=== PATIENT | female | born 1950 | race Caucasian/White ===

== ENCOUNTER → 2016-07-23 14:00 | Outpatient (CLI) | payer MEDICARE ==
[2013-08-28 06:44] VITALS: BMI 24.6
[~2016-07-23 14:00] MED LIST: BAYER CHEWABLE81 MG PO; DESERYL100 MG PO; GLUCOPHAGE1000 MG PO; MOBIC7.5 MG PO; PRINIVIL20 MG PO; TENORMIN50 MG PO
== END | disposition home or self-care (01) ==
LOC: D.CT 14:00
DX: I65.23 Occlusion and stenosis of bilateral carotid arteries (principal); R55 Syncope and collapse

== ENCOUNTER 2016-08-20 13:25 | Emergency (ER) | payer MEDICARE ==
[2013-08-28 06:44] VITALS: BMI 24.6
[2016-08-20 14:46] LABS: BASOPHILS 0.3 % (0-2); EOSINOPHILS 1.3 % (0-7); HEMATOCRIT 36.2 % (36.0-48.0); HEMOGLOBIN 11.6 g/dL (12-16); IMMATURE GRANULOCYTES 0.2 % (0-5); LYMPHOCYTES 19.7 % (15-50); MCH 27.7 pg (26.0-34.0); MCV 86.4 fL (80.0-100.0); MEAN PLATELET VOLUME 11.4 fL (7.4-10.4); MONOCYTES 6.5 % (2-11); PLATELET COUNT 159 10x3/uL (130-400); RBC 4.19 10x6/uL (4.00-5.40); RDW 14.9 % (11.5-14.5)
[2016-08-20 15:02] LABS: ALBUMIN 4.2 g/dL (3.4-5.0); ANION GAP 20.4 mmol/L (8-16); BILIRUBIN - TOTAL 0.47 mg/dL (0.2-1.3); CARBON DIOXIDE 20.2 mmol/L (21.0-32.0); CREATININE - SERUM 1.5 mg/dL (0.6-1.3); POTASSIUM - SERUM 3.6 mmol/L (3.5-5.1); PROTEIN - SERUM 6.7 g/dL (6.4-8.2)
[2016-08-20 15:05] LABS: APTT 24.5 SECONDS (22.8-39.4); INR 1.03 (0.85-1.17); PROTIME 13.3 SECONDS (11.6-15.0)
[2016-08-20 15:49] LABS: UDS - AMPHET NEGATIVE QUAL (NEGATIVE); UDS - BARB NEGATIVE QUAL (NEGATIVE); UDS - BENZO NEGATIVE QUAL (NEGATIVE); UDS - COCAINE NEGATIVE QUAL (NEGATIVE); UDS - METH NEGATIVE QUAL (NEGATIVE); UDS - OPIATE POSITIVE QUAL (NEGATIVE); UDS - PCP NEGATIVE QUAL (NEGATIVE); UDS - THC NEGATIVE QUAL (NEGATIVE)
[2016-08-20 15:51] LABS: APPEARANCE HAZY (CLEAR); BILIRUBIN NEGATIVE (NEGATIVE); COLOR YELLOW (YELLOW); GLUCOSE 1000 mg/dL (NEGATIVE); KETONE NEGATIVE (NEGATIVE); LEUKOCYTE ESTERASE TRACE (NEGATIVE); NITRITE NEGATIVE (NEGATIVE); PROTEIN NEGATIVE (NEGATIVE); UROBILINOGEN NORMAL (NORMAL)
[2016-08-20 15:52] LABS: BACTERIA FEW /hpf (NONE SEEN); EPITHELIAL CELLS 0-5 /hpf (0-5); HYALINE CAST 0-5 /lpf (NONE SEEN); MUCUS >1+ /lpf (NONE SEEN); RED CELLS - URINE 0-5 /hpf (0-5); WHITE CELLS - URINE 0-5 /hpf (0-5)
== END 2016-08-20 16:32 | disposition home or self-care (01) ==
LOC: D.ER 13:25
PROVIDERS: Emergency Medicine
DX: R55 Syncope and collapse (principal); E86.0 Dehydration; I95.1 Orthostatic hypotension; E11.9 Type 2 diabetes mellitus without complications; I25.10 Atherosclerotic heart disease of native coronary artery without angina pectoris

== ENCOUNTER → 2016-12-14 09:11 | Outpatient (CLI) | payer MEDICARE ==
[2013-08-28 06:44] VITALS: BMI 24.6
== END | disposition home or self-care (01) ==
LOC: D.MRI 09:11
DX: M47.812 Spondylosis without myelopathy or radiculopathy, cervical region (principal); S06.0X0A Concussion without loss of consciousness, initial encounter; S09.93XA Unspecified injury of face, initial encounter; S19.9XXA Unspecified injury of neck, initial encounter

== ENCOUNTER 2017-11-11 13:33 | Observation (INO) | payer MEDICARE ==
[~2017-11-11] VITALS: Ht 162.6 cm; Wt 63.5 kg
[2017-11-11 16:54] LABS: BASOPHILS 0.3 % (0-2); EOSINOPHILS 0.8 % (0-7); HEMATOCRIT 37.6 % (36.0-48.0); IMMATURE GRANULOCYTES 0.2 % (0-5); LYMPHOCYTES 14.5 % (15-50); MCH 31.3 pg (26.0-34.0); MCHC 34.6 g/dL (31.0-37.0); MCV 90.4 fL (80.0-100.0); MEAN PLATELET VOLUME 10.5 fL (7.4-10.4); MONOCYTES 6.5 % (2-11); NEUTROPHILS 77.7 % (40-80); PLATELET COUNT 158 10x3/uL (130-400); RBC 4.16 10x6/uL (4.00-5.40); RDW 12.7 % (11.5-14.5); WBC 6.3 10x3/uL (4.8-10.8)
[2017-11-11 17:08] LABS: ALBUMIN 4.1 g/dL (3.4-5.0); ALKALINE PHOSPHATASE 64 U/L (46-116); ALT (SGPT) 16 U/L (10-68); BILIRUBIN - TOTAL 0.33 mg/dL (0.2-1.3); CALC OSMOLALITY 285 mosm/kg (275-300); CALCIUM 9.2 mg/dL (8.5-10.1); CARBON DIOXIDE 26.1 mmol/L (21.0-32.0); CHLORIDE - SERUM 103 mmol/L (98-107); GLUCOSE 253 mg/dL (74-106); POTASSIUM - SERUM 3.5 mmol/L (3.5-5.1); PROTEIN - SERUM 7.3 g/dL (6.4-8.2); SODIUM 138 mmol/L (136-145); UREA NITROGEN 15 mg/dL (7-18); eGFR NON AFRICAN AMERICAN 59 mL/min (90-120)
[2017-11-11 17:10] LABS: TROPONIN-I < 0.017 ng/mL (0.000-0.060)
[2017-11-11 19:30] VITALS: BP 247/114
[2017-11-11 20:01] VITALS: BP 210/95
[2017-11-11 21:00] VITALS: BP 211/90
[2017-11-11 22:00] VITALS: BP 232/96
[2017-11-11 22:30] VITALS: BP 215/92
[2017-11-11 23:30] VITALS: BP 208/62
[2017-11-12 00:26] VITALS: BP 193/80
[2017-11-12 02:20] VITALS: BMI 24.0
[2017-11-12] MEDS ORDERED: ZOFRAN8 MG PO (02:50)
[2017-11-12] MEDS ORDERED: NAPROSYN500 MG PO (02:51)
[2017-11-12] MEDS ORDERED: ISORDIL40 MG PO (02:51)
[2017-11-12] MEDS ORDERED: NORMODYNE / TR200 MG PO (02:51)
[2017-11-12 04:43] LABS: BASOPHILS 0.2 % (0-2); EOSINOPHILS 0.4 % (0-7); HEMATOCRIT 36.7 % (36.0-48.0); HEMOGLOBIN 12.9 g/dL (12-16); IMMATURE GRANULOCYTES 0.3 % (0-5); LYMPHOCYTES 12.1 % (15-50); MCH 31.4 pg (26.0-34.0); MCHC 35.1 g/dL (31.0-37.0); MCV 89.3 fL (80.0-100.0); MEAN PLATELET VOLUME 10.4 fL (7.4-10.4); MONOCYTES 6.3 % (2-11); NEUTROPHILS 80.7 % (40-80); PLATELET COUNT 174 10x3/uL (130-400); RBC 4.11 10x6/uL (4.00-5.40); RDW 12.8 % (11.5-14.5)
[2017-11-12 04:45] LABS: WBC 9.1 10x3/uL (4.8-10.8)
[2017-11-12 05:11] LABS: CALC OSMOLALITY 272 mosm/kg (275-300); CALCIUM 8.3 mg/dL (8.5-10.1); CARBON DIOXIDE 24.3 mmol/L (21.0-32.0); CHLORIDE - SERUM 102 mmol/L (98-107); CKMB 0.8 U/L (0.0-3.6); CREATINE KINASE 26 UL (21-215); CREATININE - SERUM 0.8 mg/dL (0.6-1.3); GLUCOSE 163 mg/dL (74-106); POTASSIUM - SERUM 3.2 mmol/L (3.5-5.1); SODIUM 135 mmol/L (136-145); TROPONIN-I < 0.017 ng/mL (0.000-0.060); UREA NITROGEN 11 mg/dL (7-18); eGFR NON AFRICAN AMERICAN 76 mL/min (90-120)
[2017-11-12 05:44] VITALS: BP 174/81
[2017-11-12 08:21] VITALS: BP 178/97
[2017-11-12] MEDS ORDERED: NIFEDIPINE ER60 MG PO (12:10)
[2017-11-12 12:53] VITALS: BP 183/75
[2017-11-12 14:15] VITALS: Ht 162.6 cm; Wt 63.5 kg
[2017-11-12 16:23] VITALS: BP 203/80
[2017-11-12 20:16] VITALS: BP 177/68
[2017-11-13 01:25] VITALS: BP 120/72
[2017-11-13 04:34] LABS: BASOPHILS 0.1 % (0-2); EOSINOPHILS 0.1 % (0-7); HEMATOCRIT 36.2 % (36.0-48.0); HEMOGLOBIN 12.6 g/dL (12-16); IMMATURE GRANULOCYTES 0.3 % (0-5); LYMPHOCYTES 11.4 % (15-50); MCH 31.2 pg (26.0-34.0); MCHC 34.8 g/dL (31.0-37.0); MCV 89.6 fL (80.0-100.0); MEAN PLATELET VOLUME 10.2 fL (7.4-10.4); MONOCYTES 7.8 % (2-11); NEUTROPHILS 80.3 % (40-80); PLATELET COUNT 187 10x3/uL (130-400); RBC 4.04 10x6/uL (4.00-5.40); RDW 12.8 % (11.5-14.5); WBC 8.9 10x3/uL (4.8-10.8)
[2017-11-13 04:39] LABS: ANION GAP 13.7 mmol/L (8-16); CALCIUM 9.1 mg/dL (8.5-10.1)
[2017-11-13 04:46] LABS: POTASSIUM - SERUM 3.7 mmol/L (3.5-5.1)
[2017-11-13 05:03] VITALS: BP 155/70
[2017-11-13 08:41] VITALS: BP 124/61
[2017-11-13 12:39] VITALS: BP 146/65
[2017-11-13 15:52] VITALS: BP 118/64
== END 2017-11-13 17:10 | disposition home or self-care (01) ==
LOC: D.ER 13:33 → OBSVTIME 23:43 → D.EDHOLD 23:43 → D.M2 23:43
PROVIDERS: Family Medicine; Internal Medicine Nephrology
DX: I16.0 Hypertensive urgency (principal); E78.5 Hyperlipidemia, unspecified; I25.10 Atherosclerotic heart disease of native coronary artery without angina pectoris; Z95.5 Presence of coronary angioplasty implant and graft; E11.9 Type 2 diabetes mellitus without complications; Z86.73 Personal history of transient ischemic attack (TIA), and cerebral infarction without residual deficits; E87.6 Hypokalemia; K25.9 Gastric ulcer, unspecified as acute or chronic, without hemorrhage or perforation

== ENCOUNTER → 2017-11-25 11:09 | Outpatient (CLI) | payer MEDICARE ==
[2017-11-12 14:15] VITALS: BMI 24.0
[~2017-11-25 11:09] MED LIST changes: +ISORDIL40 MG PO; +NAPROSYN500 MG PO; +NIFEDIPINE ER60 MG PO; +NORMODYNE / TR200 MG PO; +ZOFRAN8 MG PO
== END | disposition home or self-care (01) ==
LOC: D.RAD 11:09
DX: M25.552 Pain in left hip (principal)

== ENCOUNTER 2017-11-28 15:38 | Emergency (ER) | payer MEDICARE ==
[~2017-11-28] VITALS: Ht 162.6 cm; Wt 61.4 kg
[2017-11-28 15:43] VITALS: BP 154/98; Ht 162.6 cm; Wt 61.4 kg
== END 2017-11-28 17:00 | disposition left against medical advice (07) ==
LOC: D.ER 15:38
DX: H92.02 Otalgia, left ear (principal)

== ENCOUNTER → 2017-12-02 15:29 | Outpatient (CLI) | payer MEDICARE ==
[2017-11-28 15:43] VITALS: BMI 23.2
== END | disposition home or self-care (01) ==
LOC: D.MRI 12-01 18:00
DX: I67.9 Cerebrovascular disease, unspecified (principal)

== ENCOUNTER 2018-06-26 12:46 | Inpatient (IN) | payer OTHER ==
[2018-06-26] VITALS (11 sets, daily range): BP systolic 93–144; BP diastolic 41–72; BMI 23.1
[2018-06-26 13:42] LABS: HEMATOCRIT 23.9 % (36.0-48.0); HEMOGLOBIN 7.6 g/dL (12-16); MCH 29.6 pg (26.0-34.0); MCHC 31.8 g/dL (31.0-37.0); MEAN PLATELET VOLUME 10.9 fL (7.4-10.4); PLATELET COUNT 242 10x3/uL (130-400); RBC 2.57 10x6/uL (4.00-5.40); RDW 13.9 % (11.5-14.5); WBC 21.9 10x3/uL (4.8-10.8)
[2018-06-26 13:44] LABS: APPEARANCE CLEAR (CLEAR); BILIRUBIN NEGATIVE (NEGATIVE); COLOR STRAW (YELLOW); GLUCOSE 1000 mg/dL (NEGATIVE); KETONE LARGE mg/dL (NEGATIVE); NITRITE NEGATIVE (NEGATIVE); PROTEIN NEGATIVE (NEGATIVE); UROBILINOGEN NORMAL (NORMAL)
[2018-06-26 13:57] LABS: ALBUMIN 3.1 g/dL (3.4-5.0); ANION GAP 22.1 mmol/L (8-16); BILIRUBIN - TOTAL 0.34 mg/dL (0.2-1.3); CALCIUM 8.4 mg/dL (8.5-10.1); CARBON DIOXIDE 18.7 mmol/L (21.0-32.0); CREATININE - SERUM 1.5 mg/dL (0.6-1.3); POTASSIUM - SERUM 4.8 mmol/L (3.5-5.1); PROTEIN - SERUM 5.7 g/dL (6.4-8.2)
[2018-06-26 15:15] LABS: LYMPHOCYTES 4 % (15-50); MONOCYTES 4 % (2-11); NEUTROPHILS 92 % (40-80); PLATELET ESTIMATE NORMAL
[2018-06-26 17:00] LABS: HEMATOCRIT 22.9 % (36.0-48.0)
[2018-06-26 17:05] LABS: INR 1.41 (0.85-1.17); PROTIME 16.7 SECONDS (11.6-15.0)
[2018-06-26 17:10] LABS: HEMOGLOBIN 7.3 g/dL (12-16)
[2018-06-26 17:14] LABS: D-DIMER-QUANTITATIVE 4.17 ug/mLFEU (0.20-0.54)
[2018-06-26 18:27] LABS: ANION GAP 22.3 mmol/L (8-16); CALCIUM 8.1 mg/dL (8.5-10.1); CARBON DIOXIDE 15.6 mmol/L (21.0-32.0); CREATININE - SERUM 1.5 mg/dL (0.6-1.3); MAGNESIUM - SERUM 1.8 mg/dL (1.8-2.4)
[2018-06-26 18:36] LABS: POTASSIUM - SERUM 3.9 mmol/L (3.5-5.1)
[2018-06-26 23:24] LABS: HEMATOCRIT 19.3 % (36.0-48.0); HEMOGLOBIN 6.4 g/dL (12-16)
[2018-06-26 23:34] LABS: CALCIUM 8.3 mg/dL (8.5-10.1); CREATININE - SERUM 1.4 mg/dL (0.6-1.3); POTASSIUM - SERUM 3.4 mmol/L (3.5-5.1)
[2018-06-26 23:35] LABS: ANION GAP 15.6 mmol/L (8-16); CARBON DIOXIDE 20.8 mmol/L (21.0-32.0)
[2018-06-27] VITALS (29 sets, daily range): BP systolic 104–199; BP diastolic 45–100; BMI 22.6
[2018-06-27 04:06] LABS: BASOPHILS 0.1 % (0-2); EOSINOPHILS 0 % (0-7); IMMATURE GRANULOCYTES 0.3 % (0-5); MCH 30.2 pg (26.0-34.0); MCHC 33.3 g/dL (31.0-37.0); MEAN PLATELET VOLUME 10.3 fL (7.4-10.4); MONOCYTES 4.9 % (2-11); NEUTROPHILS 87.7 % (40-80); RDW 14.6 % (11.5-14.5)
[2018-06-27 04:09] LABS: WBC 11.3 10x3/uL (4.8-10.8)
[2018-06-27 04:10] LABS: RBC 1.99 10x6/uL (4.00-5.40)
[2018-06-27 04:11] LABS: MCV 90.5 fL (80.0-100.0); PLATELET COUNT 150 10x3/uL (130-400)
[2018-06-27 04:15] LABS: INR 1.42 (0.85-1.17); PROTIME 16.8 SECONDS (11.6-15.0)
[2018-06-27 04:16] LABS: ANION GAP 15.2 mmol/L (8-16); CALCIUM 8.5 mg/dL (8.5-10.1); CREATININE - SERUM 1.2 mg/dL (0.6-1.3); MAGNESIUM - SERUM 1.9 mg/dL (1.8-2.4); POTASSIUM - SERUM 3.2 mmol/L (3.5-5.1)
[2018-06-27 06:50] LABS: ALBUMIN 2.8 g/dL (3.4-5.0); BILIRUBIN - TOTAL 0.18 mg/dL (0.2-1.3); PROTEIN - SERUM 5.1 g/dL (6.4-8.2)
[2018-06-27 08:36] LABS: % SATURATION 7 % (15-55); IRON 14 ug/dl (35-150); TOTAL IRON BIND CAPACITY 194 ug/dl (260-445); UNSAT IRON BIND CAPACITY 180 ug/dl (150-375)
[2018-06-27 11:11] LABS: HEMATOCRIT 21.2 % (36.0-48.0)
[2018-06-27 11:17] LABS: HEMOGLOBIN 7.1 g/dL (12-16)
[2018-06-27 11:20] LABS: ANION GAP 15.7 mmol/L (8-16); CALCIUM 7.6 mg/dL (8.5-10.1); CARBON DIOXIDE 18.6 mmol/L (21.0-32.0); MAGNESIUM - SERUM 1.8 mg/dL (1.8-2.4); POTASSIUM - SERUM 3.3 mmol/L (3.5-5.1)
[2018-06-28] VITALS (20 sets, daily range): BP systolic 104–212; BP diastolic 63–100
[2018-06-28 05:00] LABS: AMYLASE - SERUM 237 U/L (25-115); CALCIUM 7.3 mg/dL (8.5-10.1); CARBON DIOXIDE 22.5 mmol/L (21.0-32.0); CHLORIDE - SERUM 115 mmol/L (98-107); CREATININE - SERUM 0.8 mg/dL (0.6-1.3); GLUCOSE 155 mg/dL (74-106); LIPASE 98 U/L (73-393); MAGNESIUM - SERUM 1.7 mg/dL (1.8-2.4); PHOSPHOROUS 1.7 mg/dL (2.5-4.9); SODIUM 146 mmol/L (136-145); eGFR NON AFRICAN AMERICAN 76 mL/min (90-120)
[2018-06-28 05:13] LABS: CALC OSMOLALITY 298 mosm/kg (275-300); POTASSIUM - SERUM 2.6 mmol/L (3.5-5.1); UREA NITROGEN 26 mg/dL (7-18)
[2018-06-28 07:54] LABS: BASOPHILS 0 % (0-2); EOSINOPHILS 0 % (0-7); IMMATURE GRANULOCYTES 0.3 % (0-5); LYMPHOCYTES 9.1 % (15-50); MCH 29.3 pg (26.0-34.0); MCHC 34.2 g/dL (31.0-37.0); MEAN PLATELET VOLUME 10.8 fL (7.4-10.4); MONOCYTES 8.5 % (2-11); NEUTROPHILS 82.1 % (40-80); RDW 15.2 % (11.5-14.5)
[2018-06-28 08:02] LABS: HEMATOCRIT 26.9 % (36.0-48.0); HEMOGLOBIN 9.2 g/dL (12-16); RBC 3.14 10x6/uL (4.00-5.40); WBC 7.4 10x3/uL (4.8-10.8)
[2018-06-28 08:03] LABS: MCV 85.7 fL (80.0-100.0); PLATELET COUNT 86 10x3/uL (130-400)
[2018-06-28 08:29] LABS: PLATELET ESTIMATE DECREASED
[2018-06-28 15:27] LABS: HEMATOCRIT 27.5 % (36.0-48.0); HEMOGLOBIN 9.4 g/dL (12-16)
--- NOTE | 2018-06-29 00:11 | MORECARE ---
CASE MANAGEMENT DISCHARGE SUMMARY PATIENT: KRISHNA CLIFTON UNIT: [id number] ADM DATE: 06/26/18 AGE: 67 : 50 SEX: F ROOM/BED: D.213 AUTHOR: KARINE RODRIGUEZ PHYSICIAN: REFERRING PHYSICIAN: ISABELA ELLIS MD DATE OF SERVICE: 06/29/18 Discharge Plan Patient Name: KRISHNA CLIFTON [facility] [facility] 1950 Planned Disposition: Home Anticipated Discharge Date: Discharge Date: Expected LOS: Initial Reviewer: [email or web address] Initial Review Date: 06/28/2018 Generated: 06/29/18 1:10 am DCPIA - Discharge Planning Initial Assessment Updated by [email or web address]: Latoya Del Cid on 06/29/18 12:09 am * Is the patient Alert and Oriented? Yes * How many steps to enter\exit or inside your home? * PCP EMILY * Pharmacy [facility] * Preadmission Environment Home with Family * ADLs Independent * Other Equipment WALKER, CANE * List name and contact numbers for known caregivers / representatives who currently or will assist patient after discharge: EDIN CLIFTON - SPOUSE- [phone] * Verbal permission to speak to the caregivers and representatives has been obtained from the patient. N/A * Community resources currently utilized None * Additional services required to return to the preadmission environment? No * Can the patient safely return to the preadmission environment? Yes * Has this patient been hospitalized within the prior 30 days at any hospital? No Patient Name: KRISHNA CLIFTON Page [phone] at 0011 All edits/amendments must be made on the electronic document DICTATION DATE: 06/29/189 LAPIDARIST: GERA 06/29/189 RPT#: [id number] DC DATE: STATUS: ADM IN [facility] [address] [place] [address] END OF REPORT
--- NOTE | 2018-06-29 00:18 | MORECARE ---
CASE MANAGEMENT DISCHARGE SUMMARY PATIENT: KRISHNA CLIFTON UNIT: [id number] ADM DATE: 06/26/18 AGE: 67 : 50 SEX: F ROOM/BED: D.2149 AUTHOR: MICHAEL,DOC PHYSICIAN: REFERRING PHYSICIAN: ISABELA ELLIS MD DATE OF SERVICE: 06/29/18 Discharge Plan Patient Name: KRISHNA CLIFTON Facility: [facility]:[place] : 1950 Planned Disposition: Home Anticipated Discharge Date: Discharge Date: Expected LOS: Initial Reviewer: [email or web address] Initial Review Date: 06/28/2018 Generated: 06/29/18 1:17 am Comments DCP- Discharge Planning Updated by [email or web address]: Latoya Del Cid on 06/28/18 11:[address] Patient Name: KRISHNA CLIFTON Admission Status: ER Accout number: [id number] Admission Date: 06-26-2018 : 1950 Admission Diagnosis: Attending: ISABELA ELLIS Current LOS: 3 Anticipated DC Date: Planned Disposition: Home Primary Insurance: [facility] [employer] PPO Discharge Planning Comments: CM met with patient at bedside after explaining CM role and obtaining verbal consent. Patient lives at home with her and grand-daughter and plans to return there upon discharge. Patient feels this would be a safe discharge. CM discussed availability / needs of home health and medical equipment. Patient denies any discharge needs at this time. Patient states she will have family drive her home upon discharge. CM will continue to follow and assist as needed with discharge planning / needs. Traveling Crane Operator: Latoya Del Cid DCPIA - Discharge Planning Initial Assessment Updated by [email or web address]: Latoya Del Cid on 06/29/18 12:09 am * Is the patient Alert and Oriented? Yes * How many steps to enter\exit or inside your home? * PCP EMILY * Pharmacy [facility] * Preadmission Environment Home with Family * ADLs Independent * Other Equipment WALKER, CANE * List name and contact numbers for known caregivers / representatives who currently or will assist patient after discharge: EDIN CLIFTON - SPOUSE- [phone] * Verbal permission to speak to the caregivers and representatives has been obtained from the patient. N/A * Community resources currently utilized None * Additional services required to return to the preadmission environment? No * Can the patient safely return to the preadmission environment? Yes * Has this patient been hospitalized within the prior 30 days at any hospital? No Last DP export: 06/28/18 11:10 p Patient Name: KRISHNA CLIFTON Page [phone] at 0018 All edits/amendments must be made on the electronic document DICTATION DATE: 06/29/1816 DAY HABILITATION SPECIALIST: DM 06/29/1816 RPT#: [id number] DC DATE: STATUS: ADM IN [facility] [address] [place] [address] END OF REPORT
[2018-06-29 01:37] VITALS: BP 165/69
[2018-06-29 04:00] VITALS: BP 182/89
[2018-06-29 04:29] LABS: BASOPHILS 0.2 % (0-2); EOSINOPHILS 0.4 % (0-7); HEMATOCRIT 26.4 % (36.0-48.0); HEMOGLOBIN 9.1 g/dL (12-16); IMMATURE GRANULOCYTES 0.4 % (0-5); LYMPHOCYTES 13.3 % (15-50); MCH 29.6 pg (26.0-34.0); MCHC 34.5 g/dL (31.0-37.0); MONOCYTES 7.5 % (2-11); NEUTROPHILS 78.2 % (40-80); PLATELET COUNT 74 10x3/uL (130-400); RBC 3.07 10x6/uL (4.00-5.40)
[2018-06-29 04:56] LABS: WBC 5.2 10x3/uL (4.8-10.8)
[2018-06-29 05:04] LABS: CALCIUM 7.7 mg/dL (8.5-10.1); CARBON DIOXIDE 21.5 mmol/L (21.0-32.0); CHLORIDE - SERUM 110 mmol/L (98-107); CREATININE - SERUM 0.6 mg/dL (0.6-1.3); MAGNESIUM - SERUM 1.6 mg/dL (1.8-2.4); SODIUM 141 mmol/L (136-145); eGFR NON AFRICAN AMERICAN > 90 mL/min (90-120)
[2018-06-29 05:05] LABS: CALC OSMOLALITY 281 mosm/kg (275-300); GLUCOSE 92 mg/dL (74-106); POTASSIUM - SERUM 3.4 mmol/L (3.5-5.1); UREA NITROGEN 15 mg/dL (7-18)
[2018-06-29 05:42] LABS: PLATELET ESTIMATE DECREASED
[2018-06-29 11:47] LABS: HEMATOCRIT 27.3 % (36.0-48.0); HEMOGLOBIN 9.6 g/dL (12-16)
[2018-06-29 15:54] LABS: HEMATOCRIT 26.9 % (36.0-48.0); HEMOGLOBIN 9.5 g/dL (12-16)
[2018-06-29 21:07] VITALS: BP 152/71
[2018-06-30] VITALS: BP 189/84
[2018-06-30 05:02] VITALS: BP 160/70
[2018-06-30 06:31] LABS: BASOPHILS 0.3 % (0-2); EOSINOPHILS 1.8 % (0-7); HEMATOCRIT 27.8 % (36.0-48.0); HEMOGLOBIN 9.6 g/dL (12-16); IMMATURE GRANULOCYTES 0.8 % (0-5); LYMPHOCYTES 12.8 % (15-50); MCH 29.7 pg (26.0-34.0); MCHC 34.5 g/dL (31.0-37.0); MCV 86.1 fL (80.0-100.0); MONOCYTES 14.6 % (2-11); NEUTROPHILS 69.7 % (40-80); RBC 3.23 10x6/uL (4.00-5.40); RDW 14.7 % (11.5-14.5)
[2018-06-30 06:34] LABS: PLATELET COUNT 105 10x3/uL (130-400)
[2018-06-30 06:43] LABS: CALC OSMOLALITY 281 mosm/kg (275-300); CALCIUM 7.7 mg/dL (8.5-10.1); CHLORIDE - SERUM 107 mmol/L (98-107); CREATININE - SERUM 0.7 mg/dL (0.6-1.3); GLUCOSE 135 mg/dL (74-106); POTASSIUM - SERUM 3.3 mmol/L (3.5-5.1); SODIUM 141 mmol/L (136-145); UREA NITROGEN 10 mg/dL (7-18); eGFR NON AFRICAN AMERICAN 88 mL/min (90-120)
[2018-06-30 09:39] VITALS: BP 139/69
[2018-06-30 11:45] VITALS: BP 140/72
[2018-06-30] MEDS ORDERED: PROTONIX40 MG PO (15:39)
[2018-06-30] MEDS ORDERED: CARAFATE1 G PO (15:40)
[2018-06-30] MEDS ORDERED: LEVOFLOXACIN500 MG PO (15:41)
[2018-06-30] MEDS ORDERED: FLAGYL500 MG PO (15:45)
[2018-06-30] MEDS ORDERED: PLAVIX75 MG PO (15:53)
--- NOTE | 2018-07-01 09:19 | MORECARE ---
CASE MANAGEMENT DISCHARGE SUMMARY PATIENT: KRISHNA CLIFTON UNIT: [id number] ADM DATE: 06/26/18 AGE: 67 : 50 SEX: F ROOM/BED: D.5576 AUTHOR: MICHAELDOC PHYSICIAN: REFERRING PHYSICIAN: ISABELA ELLIS MD DATE OF SERVICE: 07/01/18 Discharge Plan Patient Name: KRISHNA CLIFTON Facility: [facility]:[place] : 1950 Planned Disposition: Home Anticipated Discharge Date: 06/30/18 Discharge Date: 06/30/2018 Expected LOS: 4 Initial Reviewer: [email or web address] Initial Review Date: 06/28/2018 Generated: 07/01/18 10:19 am DCP- Discharge Planning Updated by [email or web address]: Latoya Del Cid on 06/28/18 11:[address] Patient Name: KRISHNA CLIFTON Admission Status: ER Accout number: [id number] Admission Date: 06-26-2018 : 1950 Admission Diagnosis: Attending: ISABELA ELLIS Current LOS: 3 Anticipated DC Date: Planned Disposition: Home Primary Insurance: [employer] PPO Discharge Planning Comments: CM met with patient at bedside after explaining CM role and obtaining verbal consent. Patient lives at home with her and grand-daughter and plans to return there upon discharge. Patient feels this would be a safe discharge. CM discussed availability / needs of home health and medical equipment. Patient denies any discharge needs at this time. Patient states she will have family drive her home upon discharge. CM will continue to follow and assist as needed with discharge planning / needs. Aquaculture Farmer: Latoya Del Cid DCPIA - Discharge Planning Initial Assessment Updated by [email or web address]: Latoya Del Cid on 06/29/18 12:09 am * Is the patient Alert and Oriented? Yes * How many steps to enter\exit or inside your home? * PCP EMILY * Pharmacy [facility] * Preadmission Environment Home with Family * ADLs Independent * Other Equipment WALKER, CANE * List name and contact numbers for known caregivers / representatives who currently or will assist patient after discharge: EDIN CLIFTON - SPOUSE- [phone] * Verbal permission to speak to the caregivers and representatives has been obtained from the patient. N/A * Community resources currently utilized None * Additional services required to return to the preadmission environment? No * Can the patient safely return to the preadmission environment? Yes * Has this patient been hospitalized within the prior 30 days at any hospital? No Last DP export: 06/28/18 11:17 p Patient Name: KRISHNA CLIFTON Page 26048 at 0919 All edits/amendments must be made on the electronic document DICTATION DATE: 07/01/18917 RAMP AND CARGO SUPERVISOR: GERA 07/01/18917 RPT#: [id number] DC DATE:06/30/18 STATUS: DIS IN [facility] [address] [place] [address] END OF REPORT
== END 2018-06-30 17:55 | disposition home or self-care (01) | DRG 377 ==
LOC: D.ER 12:46 → D.ICU 17:05 → D.M2 06-28 22:28
PROVIDERS: Family Medicine; Internal Medicine Gastroenterology; Internal Medicine Hematology & Oncology; ADMIT Internal Medicine Nephrology
PROC: 02HV33Z Insertion of Infusion Device into Superior Vena Cava, Percutaneous Approach (ICD-10-PCS; 2018-06-27)
PROC: B548ZZA Ultrasonography of Superior Vena Cava, Guidance (ICD-10-PCS; 2018-06-27)
PROC: 0DB68ZX Excision of Stomach, Via Natural or Artificial Opening Endoscopic, Diagnostic (ICD-10-PCS; principal; 2018-06-28 13:47)
DX: K25.4 Chronic or unspecified gastric ulcer with hemorrhage (principal); E11.10 Type 2 diabetes mellitus with ketoacidosis without coma; G93.41 Metabolic encephalopathy; D62 Acute posthemorrhagic anemia; N17.9 Acute kidney failure, unspecified; E87.2 Acidosis; D68.9 Coagulation defect, unspecified; E87.0 Hyperosmolality and hypernatremia; K57.92 Diverticulitis of intestine, part unspecified, without perforation or abscess without bleeding; R11.10 Vomiting, unspecified; W19.XXXA Unspecified fall, initial encounter; I25.10 Atherosclerotic heart disease of native coronary artery without angina pectoris; E86.0 Dehydration; Z91.81 History of falling; Z95.5 Presence of coronary angioplasty implant and graft; Z86.73 Personal history of transient ischemic attack (TIA), and cerebral infarction without residual deficits; K44.9 Diaphragmatic hernia without obstruction or gangrene; E87.6 Hypokalemia

== ENCOUNTER 2018-10-24 11:33 | Day surgery (SDC) | payer MEDICARE ==
[~2018-10-24] VITALS: Ht 162.6 cm; Wt 54.5 kg
[~2018-10-24 11:33] MED LIST changes: +CARAFATE1 G PO; +FLAGYL500 MG PO; +LEVOFLOXACIN500 MG PO; +PLAVIX75 MG PO; +PROTONIX40 MG PO
[2018-10-24 12:05] LABS: BASOPHILS 0.2 % (0-2); EOSINOPHILS 2.5 % (0-7); HEMATOCRIT 37.5 % (36.0-48.0); LYMPHOCYTES 24.1 % (15-50); MCH 30.1 pg (26.0-34.0); MCHC 34.7 g/dL (31.0-37.0); MCV 86.8 fL (80.0-100.0); MEAN PLATELET VOLUME 10.1 fL (7.4-10.4); MONOCYTES 7.9 % (2-11); NEUTROPHILS 65.3 % (40-80); RBC 4.32 10x6/uL (4.00-5.40); RDW 13.7 % (11.5-14.5); WBC 4.8 10x3/uL (4.8-10.8)
[2018-10-24 12:12] LABS: PLATELET COUNT 165 10x3/uL (130-400)
[2018-10-24 12:17] LABS: CALC OSMOLALITY 279 mosm/kg (275-300); CALCIUM 9.6 mg/dL (8.5-10.1); CARBON DIOXIDE 22.4 mmol/L (21.0-32.0); CHLORIDE - SERUM 107 mmol/L (98-107); CREATININE - SERUM 0.7 mg/dL (0.6-1.3); GLUCOSE 100 mg/dL (74-106); POTASSIUM - SERUM 3.6 mmol/L (3.5-5.1); SODIUM 141 mmol/L (136-145); UREA NITROGEN 11 mg/dL (7-18); eGFR NON AFRICAN AMERICAN 88 mL/min (90-120)
[2018-10-24 13:11] VITALS: Ht 162.6 cm; Wt 54.5 kg
--- NOTE | 2018-10-24 14:51 | NUR ---
DC INSTRUCTIONS GIVEN TO PT/FAMILY. STATE UNDERSTANDING. DC'D IV CATH FULLY INTACT.
--- NOTE | 2018-10-24 15:07 | NUR ---
PT LEFT UNIT VIA WC AT 1511
--- NOTE | 2018-10-24 20:17 | OP ---
PATIENT NAME: KRISHNA CLIFTON MEDICAL RECORD: [id number] :[birth year] LOCATION:[facility] ADMISSION DATE: SURGEON: ADEN WEINSTEIN DO DATE OF OPERATION: 10/24/2018 PROCEDURE: EGD with biopsies. INDICATIONS FOR PROCEDURE: History of gastric ulcers. This is a 4-month followup to reevaluate. SCOPE: Olympus video gastroscope. MEDICATIONS: Propofol 100 mg IV per anesthesia. ESTIMATED BLOOD LOSS: Minimal. COMPLICATIONS: None. FINDINGS: Informed consent was given. The patient was made comfortable with the above medication. After reaching an adequate level of sedation by slow IV push, the patient was placed on her left side. The endoscope was advanced under direct visualization through the mouth to the second portion of the duodenum with ease. The entire esophagus appeared normal. At the GE junction, there were mild changes consistent with LA class A reflux-induced esophagitis. The endoscope was advanced beyond the GE junction into the stomach and retroflexed to view the cardia, where a small sliding hiatal hernia was present. Throughout the stomach, there were patchy areas of erythema and granularity consistent with gastritis. Random cold forceps biopsies were taken to submit for histopathology and to rule out the presence of H. pylori. In the antrum/prepyloric region, there were a few ulcerations with clean bases. Appearances were consistent with NSAIDs. A single cold forceps biopsy was taken from the edge of the largest ulcer site. Of note, the previous ulcer that was present has healed by imaging. The endoscope was advanced beyond the pylorus into the duodenum, which appeared normal down to the second portion. The endoscope was withdrawn from the patient. The patient tolerated the procedure well and there were no complications. IMPRESSION: 1. LA class A reflux-induced esophagitis. 2. Small sliding hiatal hernia. 3. A few prepyloric ulcers, which are likely related to the patient's high dose aspirin that she takes daily. 4. Gastritis. PLAN AND RECOMMENDATIONS: 1. Discharge home when recovery parameters are met. 2. Follow up biopsy specimen results. 3. GERD diet and reflux precautions. 4. Continue antacids indefinitely while taking high dose aspirin. 5. Minimize use of anti-inflammatories. 6. Repeat EGD as needed. TRANSINT:[id number] Voice Confirmation ID: [id number] DOCUMENT ID: [id number] OPERATIVE REPORT [id number] KRISHNA CLIFTON NATHAN A DO at 2017 CC: [id number] DICTATION DATE: 10/24/18 1401 TRAVELIFT OPERATOR: 10/24/18 1412 [facility] 10/24/18 [place] [id number] [place] [id number]
== END 2018-10-24 15:11 | disposition home or self-care (01) ==
LOC: D.OPS 11:33
PROVIDERS: Anesthesiology; ATTEND Internal Medicine Gastroenterology
DX: K21.0 Gastro-esophageal reflux disease with esophagitis (principal); K44.9 Diaphragmatic hernia without obstruction or gangrene; K29.50 Unspecified chronic gastritis without bleeding; Z01.812 Encounter for preprocedural laboratory examination

== ENCOUNTER → 2018-11-01 11:10 | Outpatient (CLI) | payer MEDICARE ==
[2018-10-24 13:11] VITALS: BMI 20.6
== END | disposition home or self-care (01) ==
LOC: D.NM 11:10
PROVIDERS: ATTEND Internal Medicine Gastroenterology
DX: R10.9 Unspecified abdominal pain (principal); R11.0 Nausea

== ENCOUNTER → 2019-07-28 09:30 | Outpatient (CLI) | payer MEDICARE ==
[2018-10-24 13:11] VITALS: BMI 20.6
== END | disposition home or self-care (01) ==
LOC: D.CT 07-26 15:00
PROVIDERS: ATTEND Internal Medicine Cardiovascular Disease
DX: I70.213 Atherosclerosis of native arteries of extremities with intermittent claudication, bilateral legs (principal)

== ENCOUNTER 2019-08-21 06:42 | Outpatient (CLI) | payer MEDICARE ==
[~2019-08-21] VITALS: Ht 162.6 cm; Wt 61.8 kg
--- NOTE | ~2019-08-21 | HEMODYNAMI ---
PATIENT:KRISHNA CLIFTON MEDICAL RECORD: [id number] : 50 LOCATION:[facility] ADMISSION DATE: 08/21/19 Generatedon:08/21/20199:12 Patient name: KRISHNA CLIFTON Patient #: [id number] SSN: [id number] : 1950 Date of study: 08/21/2019 Page: Of Hemodynamic Procedure Report Patient Data Patient Demographics Procedure consent was obtained First Name: KRISHNA Gender: Female Last Name: ETIENNE : 1950 Middle Initial: BECKIE Age: 68 year(s) Patient #: [id number] Race: SSN: [id number] Additional ID: [id number] Contact details Address: [address] [place] [address] State: [place] City: [place] Zip code: [address] Past Medical History Allergies Allergen Reaction Date Comments Reported Other allergy 08/21/2019 N Admission Admission Data Admission Date: 08/21/2019 Admission Time: 6:42 Arrival Date: 08/21/2019 Arrival Time: 0:00 Admit Source: Other Insurance Payor: Medicare [facility] #: [id number] Lab Results Lab Result Date: 08/21/2019 Lab Result Time: 0:00 Biochemistry Name Units Result Min Max BUN mg/dl 22 --(----)-* 7 18 Creatinine mg/dl 0.9 --(-*--)-- 0.6 1.3 eGFR ml/min 66 *-(----)-- 90 120 NONAFRICAN CBC Name Units Result Min Max Hemoglobin g/dl 11.4 *-(----)-- 13.5 17.5 Procedure Procedure Types Cath Procedure Diagnostic Procedure Sedation Charges Moderate Sedation up to 30 minutes Peripheral Cath Diagnostic Procedure Graves Registration Specialist Peripheral Procedures AFRO (Diagnostic) Peripheral vascular Intervention Stent Stent-Fem/Popw/plasty Procedure Description Procedure Date Procedure Date: 08/21/2019 Procedure Start Time: 8:33 Procedure End Time: 9:07 Procedure Staff Name Function Ramiro Alcaraz MD Performing Physician Matthew Jennings RN Nurse Lidia Rosario RT Scrub Kristie Mcrae RT Monitor Matthew Jennings RN Funeral Service Practitioner/Embalmer Procedure Data Cath Procedure Fluoroscopy Diagnostic fluoroscopy Total fluoroscopy Time: 7.5 time: 7.5 min min Diagnostic fluoroscopy Total fluoroscopy dose: 136 dose: 136 mGy mGy Entry Location Entry Primary Successful Side Size Upsize Upsize Entry Closure Succes sful Closure Location (Fr) 1 (Fr) 2 (Fr) Remarks Device Remarks Femoral Left 5 Fr 6 Fr 6 Fr Exoseal artery Long Short Estimated blood loss: 5 ml Diagnostic catheters Device Type Used For End Catheter Placement DIAGNOSTIC UF 5Fr Multi-vessel catheter ([id number]) Angiography Procedure Complications No complications Procedure Medications Medication Administration Route Dosage Oxygen etCO2 Nasal cannula 2 l/min Lidocaine 2% added to field 20 Heparin Flush Bag added to field 2 bags (1000units/500ml NS) 0.9% NaCl I.V. 100 ml/hr Versed I.V. 1 mg Fentanyl I.V. 50 mcg Versed I.V. 1 mg Fentanyl I.V. 50 mcg Heparin Bolus I.V. 4000 units Integrilin (Bolus I.V. 5.6 ml 2mg/ml) Fentanyl I.V. 50 mcg Fentanyl I.V. 50 mcg Plavix P.O. 600 mg Hemodynamics Rest HGB: 11.4 (g/dl) Heart Rate: 69 (bpm) Snapshots Pre Cath Intra NCS Post Cath Vital Signs Time Heart Resp SPO2 etCO2 NIBP (mmHg) Rhythm Pain Sedation Rate (ipm) (%) (mmHg) Status Level (bpm) 8:21:09 67 15 98 38.5 No Cuff NSR 0 (11) 10(A) , No pain 8:23:26 67 12 98 37.8 185/81(145) NSR 0 (11) 10(A) , No pain 8:26:49 69 15 99 40.7 197/80(140) NSR 0 (11) 10(A) , No pain 8:31:17 67 13 98 43.7 177/73(132) NSR 0 (11) 9(A) , No pain 8:35:39 66 14 98 45.9 146/74(126) NSR 0 (11) 9(A) , No pain 8:40:02 70 13 96 35.5 153/71(102) NSR 0 (11) 9(A) , No pain 8:44:26 71 16 98 31.8 148/63(101) NSR 0 (11) 9(A) , No pain 8:48:48 70 13 98 40.7 140/60(100) NSR 0 (11) 9(A) , No pain 8:53:06 73 12 99 41.5 152/73(118) NSR 0 (11) 9(A) , No pain 8:57:28 74 14 99 42.2 163/75(123) NSR 0 (11) 9(A) , No pain 9:01:54 74 16 98 45.2 149/69(117) NSR 0 (11) 9(A) , No pain 9:06:14 77 16 98 41.5 153/77(116) NSR 0 (11) 10(A) , No pain 9:10:32 81 13 97 40.7 166/90(127) NSR 0 (11) 10(A) , No pain Medications Time Medication Route Dose Verified Delivered Reason Notes Effectiveness by by 8:19:12 Oxygen etCO2 2 Ramiro Ramiro used for Nasal l/min [facility] procedure cannula MD ORELLANA 8:19:49 Lidocaine 2% added 20ml Ramiro Ramiro for local to vial [facility] anesthetic field MD ORELLANA 8:20:15 Heparin Flush added 2 Ramiro Ramiro used for Bag to bags [facility] procedure (1000units/500ml field MD ORELLANA NS) 8:20:24 0.9% NaCl I.V. 100 Ramiro Castro Per physician ml/hr [facility] [place] Jennings RN, MD 8:28:05 Fentanyl I.V. 50 Ramiro Colungaie for sedation mcg [facility] [place] Jennings RN, MD 8:28:59 Versed I.V. 1 mg Ramiro Colungaie for sedation [facility] [place] Jennings RN, MD 8:35:20 Versed I.V. 1 mg Ramiro Colungaie for sedation [facility] [place] Jennings RN, MD 8:35:24 Fentanyl I.V. 50 Ramiro Colungaie for sedation mcg [facility] [place] Jennings RN, MD 8:41:33 Heparin Bolus I.V. 4000 Ramiro Castro for verifi ed units [facility] [place] Jennigns RN anticoagulation with dr MD jones 8:42:44 Integrilin I.V. 5.6 Ramiro Castro for Wasted (Bolus 2mg/ml) ml [facility] [place] Jennings RN antiplatelet 4.4 ml therapy of vial 8:51:39 Fentanyl I.V. 50 Ramiro Castro for sedation mcg [facility] [place] Jennings RN, MD 8:57:02 Fentanyl I.V. 50 Ramiro Castro for sedation mcg [facility] [place] Jennings RN, MD 9:10:21 Plavix P.O. 600 Ramiro Castro for mg [facility] [place] Jennings RN antiplatelet therapy Procedure Log Time Note 7:17:31 Informed consent obtained and on chart 7:18:14 Diagnostic Cath Status : Elective 7:19:15 Arrival Date: 08/21/2019 12:00:00 AM 7:19:16 Admit Source: Other 7:19:21 Insurance Payor : Medicare 7:19:51 Patient allergic to Other allergyPCN 7:22:50 Procedure Status Peripheral. 7:22:54 Time tracking: Regular hours (M-F 7:00 - 5:00) 7:23:00 Plan of Care:Hemodynamics will remain stable., Cardiac rhythm will remain stable., Comfort level will be maintained., Respiratory function will remain adequate., Patient/ family verbilizes understanding of procedure., Procedure tolerated without complication., Recovers from procedure without complications.. 7:23:09 H&P Date Dictated: 08/10/2019 Within 30 days and on chart.. 7:23:10 Pre-procedure instructions explained to patient. 7:23:10 Pre-op teaching completed and patient verbalized understanding. 7:23:15 Alarms reviewed by R. N. 7:23:16 Sharps counted by scrub and verified by R.N. 7:23:21 Stress Test: no; N/A ? 8:00:22 Kristie Mcrae RT(R) sent for patient. Start room use. 8:19:03 Vital chart was started 8:19:12 Oxygen 2 l/min etCO2 Nasal cannula was administered by Ramiro Alcaraz MD; used for procedure; Verbal order read back and verified. 8:19:49 Lidocaine 2% 20ml vial added to field was administered by Ramiro Alcaraz MD; for local anesthetic; Verbal order read back and verified. 8:19:52 Patient received from Pre/Post Procedure Room to [facility] 1 Alert and oriented. Tansferred to table in Supine position. 8:19:53 Warm blankets applied, and tabitha hugger turned on for patient comfort. 8:19:53 Correct patient and procedure confirmed by team. 8:19:54 ECG and BP/O2 sat monitors applied to patient. 8:20:10 Baseline sample Acquired. 8:20:15 Heparin Flush Bag (1000units/500ml NS) 2 bags added to field was administered by Ramiro Alcaraz MD; used for procedure; Verbal order read back and verified. 8:20:15 Rhythm: sinus rhythm 8:20:17 Full Disclosure recording started 8:20:20 Family in patients room. 8:20:22 Patient NPO since Midnight. 8:20:24 0.9% NaCl 100 ml/hr I.V. was administered by Matthew Jennings RN; Per physician; Verbal order read back and verified. 8:20:26 Is the patient allergic to Iodine/contrast media? No. 8:20:27 Was the patient premedicated? Yes 8:20:31 Is patient on blood thinner?No 8:20:56 Vital chart was stopped 8:21:15 Patient diabetic? Yes. 8:21:18 Vital chart was started 8:21:40 If diabetic: On Metformin? Yes 8:21:45 If on Metformin: Last Dose? 08/18/2019 8:21:49 Previous problem with sedation/anesthesia? No ? 8:21:51 Snore? Yes 8:22:32 Sleep apnea? No 8:22:34 Deviated septum? No 8:22:34 Opens mouth fully? Yes 8:22:35 Sticks out tongue? Yes 8:22:40 Airway obstruction? No ? 8:22:43 Dentures? No ? 8:26:25 Pre procedure: right dorsailis pedis pulse 1+ Palpable, but thready & weak; easily obliterated 8:26:33 Pre procedure: left dorsailis pedis pulse 1+ Palpable, but thready & weak; easily obliterated 8:26:37 Patient pain scale 0/10 ?. 8:26:47 IV patent on arrival in left antecubital with 0.9% NaCl at O. 8:28:05 Fentanyl 50 mcg I.V. was administered by Matthew Jennings RN; for sedation; Verbal order read back and verified. 8::44 Lab Result : BUN 22 mg/dl 8::44 Lab Result : eGFR NONAFRICAN 66 ml/min 8::44 Lab Result : Creatinine 0.9 mg/dl 8::44 Lab Result : Hemoglobin 11.4 g/dl 8:28:51 Bilateral groins area was prepped with chlora-prep and draped in sterile fashion 8::54 Physician arrived 8:28:54 --------ALL STOP TIME OUT------ 8:28:55 Final Timeout: patient, procedure, and site verified with staff and physician. All members of the team are in agreement. 8:28:56 Bilateral groins site verified by team. 8:28:59 Versed 1 mg I.V. was administered by Matthew Jennings RN; for sedation; Verbal order read back and verified. 8:29:02 Fire Safety Assessment: A--An alcohol-based skin anteseptic being used preoperatively., C--Open oxygen or nitrous oxide is being used., D--An ESU, laser, or fiber-optic light is being used. 8:29:05 Physical assessment completed. ASA score P 2 - A patient with mild systemic disease as per Ramiro Alcaraz MD. 8:29:18 2) 60-89 Mildly reduced kidney function, and other findings (as for stage 1) point to kidney disease. 8:29:33 Maximum allowable contrast dose (3.7 X eGFR X 0.75)183 ml. 8:29:38 Sedation plan: IV Moderate Sedation Medication:Versed, Fentanyl 8:29:43 Use device set Femoral Dx 8:29:45 ACIST Syringe (46875) opened to sterile field. 8:29:45 Bag Decanter (2002) opened to sterile field. 8:29:46 Medline Cath Pack ([id number]) opened to sterile field. 8:29:47 ACIST Hand Control (43035) opened to sterile field. 8:29:47 ACIST Manifold (13032) opened to sterile field. 8:29:47 DIAGNOSTIC Multipack 5Fr catheter set (WA5499) opened to sterile field. 8:29:48 Tegaderm 4 x 4 (1626W) opened to sterile field. 8:29:50 SHEATH 5FR [place] (NCN917) opened to sterile field. 8:29:51 EMERALD Guide Wire (310-214) opened to sterile field. 8:33:14 Procedure started. 8:33:17 Local anesthetic to left femerol artery with Lidocaine 2% by Ramiro Alcaraz MD.INITIAL ACCESS ONLY 8:33:31 A 5 Fr sheath was inserted into the Left Femoral artery 8:35:18 A DIAGNOSTIC UF 5Fr catheter ([id number]) was advanced over the wire and used for Multi-vessel Angiography. 8:35:20 Versed 1 mg I.V. was administered by Matthew Jennings RN; for sedation; Verbal order read back and verified. 8:35:24 Fentanyl 50 mcg I.V. was administered by Matthew Jennings RN; for sedation; Verbal order read back and verified. 8:37:46 Abdominal angiogram w/ runoff was performed. 8:37:58 Injector settings: Ml/sec: 10, Volume: 20, 8:38:34 Catheter removed. 8:39:04 SHEATH 6FR Destination (RSR01) opened to sterile field. 8:39:04 INFLATOR Merit BasixCompak (MG9239) opened to sterile field. 8:39:04 GLIDE WIRE ANGLE 260cm (CI2935) opened to sterile field. 8:40:41 Sheath upsized to a 6 Fr Long. 8:41:17 glide wire advanced. 8:41:33 Heparin Bolus 4000 units I.V. was administered by Matthew Jennings RN; for anticoagulation; verified with dr jones Verbal order read back and verified. 8:42:44 Integrilin (Bolus 2mg/ml) 5.6 ml I.V. was administered by Matthew Jennings RN; for antiplatelet therapy; Wasted 4.4 ml of vial Verbal order read back and verified. 8:51:39 Fentanyl 50 mcg I.V. was administered by Matthew Jennings RN; for sedation; Verbal order read back and verified. 8:55:45 SMART Flex 5 X 100 X 120 stent ([id number]) was deployed across Mid Superficial Femoral, Right . 8:57:02 Fentanyl 50 mcg I.V. was administered by Matthew Jennings RN; for sedation; Verbal order read back and verified. 9:00:18 Inflate balloon Inflation number: 1 A POWERFLEX PRO 6.0 x 100 x 135cm balloon ([id number]) was prepped and advanced across the Mid Superficial Femoral, Right 80, then inflated to 16 ANDRES for 0:50 (min:sec) 0. 9:00:50 Balloon removed over the wire. 9:01:33 SHEATH 6FR [place] (PKZ435) opened to sterile field. 9:01:35 EXOSEAL 6Fr (EX600) opened to sterile field. 9:02:15 Sheath upsized to a 6 Fr Short. 9:02:15 Wire removed. 9:02:36 Fluoroscopy time 07.50 minutes. 9:02:41 Flurop Dose total: 136 9:02:41 Fluoroscopy dose: 136 mGy 9:04:23 Dose Area Product 63464 mGy/cm. 9:05:43 Sheath removed intact; hemostasis achieved with Exoseal to the Left Femoral artery. 9:05:47 Procedure ended.(Physican Out) 9:05:57 Insertion/operative site no bleeding no hematoma. 9:06:00 Post-op/insertion site Left Femoral artery dressed using a 4 x 4 and Tegaderm. 9:06:02 Post Procedure Pulses reassessed and unchanged 9:06:05 Post procedure rhythm: unchanged. 9:06:32 Estimated blood loss: 5 ml 9:06:34 Post procedure instruction explained to patient.Patient verbalizes understanding. 9:06:34 Patient needs reinforcement of post procedure teaching. 9:07:27 Procedure type changed to Cath procedure, Diagnostic procedure, Sedation Charges, Moderate Sedation up to 30 minutes, Peripheral Cath Diagnostic Procedure, Graves Registration Specialist Peripheral Procedures, AFRO (Diagnostic), Peripheral vascular Intervention, Stent, Stent-Fem/Popw/plasty 9:07:28 Procedure and supply charges have been captured, reviewed, submitted and are correct. 9:07:33 Procedure Complication : No complications 9:07:42 AFRO Findings: PVD: ICE CREAM FREEZER ASSISTANT performed (see procedure notes) 9:07:43 Operative report dictated upon procedure completion. 9:07:43 See physician's report for complete and final results. 9:07:46 Report given to Pre/Post Procedure Room. 9:07:50 Patient transfered to Pre/Post Procedure Room with Stretcher. 9:07:53 Procedure ended. 9:07:53 Full Disclosure recording stopped 9:10:10 End room use (Document Last) 9:10:21 Plavix 600 mg P.O. was administered by Matthew Jennings RN; for antiplatelet therapy; Verbal order read back and verified. 9:10:27 End room use (Document Last) 9:12:27 ACT drawn and resulted at 244 seconds. (normal therapeutic range 180-240 seconds). 9:12:56 Vital chart was stopped Intervention Summary Intervention Notes Time ActionType Lesion and Equipment Action# Pressure Duration Attributes Used 8:55:45 Deploy self Mid SMART Flex 1 expanding Superficial 5 X 100 X stent Femoral, 120 stent Right ([id number]) 9:00:18 Inflate Mid POWERFLEX 1 16 00:50 balloon Superficial PRO 6.0 x Femoral, 100 x 135cm Right balloon ([id number]) Device Usage Item Name Manufacture Quantity Catalog Hospital Part Current Minimal L ot# / Number Charge Number Stock Stock Serial# Code ACIST Acist 1 90539 755746 481793 960813 20 Syringe Medical (63489) Systems Inc Bag Microtek 1 944374 23370 836380 5 Decanter Medical Inc. () Medline Medline 1 [id number] 701587 03549 627627 5 Cath Pack ([id number]) ACIST Hand Acist 1 38306 318095 701412 274093 5 Control Medical (90205) Systems Inc ACIST Acist 1 63526 678433 950171 368400 5 Manifold Medical (99870) Systems Inc DIAGNOSTIC Cardinal 1 OD2423 569961 76250 924853 30 Multipack Viewster 5Fr catheter set (SF0072) Tegaderm 4 3M 1 1626W 549240 467211 530988 5 x 4 (1626W) SHEATH 5FR Terumo 1 VWM547 767925 011245 688279 5 [place] (XTE215) EMERALD Cardinal 1 502-455 758868 675829 270211 5 Guide Wire Health (502-455) DIAGNOSTIC Cardinal 1 [id number] 097189 321664 708594 10 UF 5Fr Health catheter ([id number]) SHEATH 6FR Terumo 1 RSR01 932226 48331 757627 5 Destination (RSR01) INFLATOR Merit 1 YA4316 608152 972802 810600 15 GeneNews Medical BasixCompak (JK9897) GLIDE WIRE Terumo 1 CS9012 984580 873242 460817 5 ANGLE 260cm (EM8841) SMART Flex Cardinal 1 [id number] 982464 557770 389323 0 2 64322 5 X 100 X Health 120 stent ([id number]) POWERFLEX Cardinal 1 [id number] 962180 688281 000947 5 PRO 6.0 x Health 100 x 135cm balloon ([id number]) SHEATH 6FR Terumo 1 VNI802 862883 196797 543527 40 [place] (TKH274) EXOSEAL 6Fr Cardinal 1 EX600 769686 704904 369913 10 (EX600) Health Signature Audit Barton Stage Time Signature Unsigned Intra-Procedure 08/21/2019 Kristie Mcrae 9:10:10 AM RT(R) Intra-Procedure 08/21/2019 Matthew Jennings RN 9:10:27 AM Intra-Procedure 08/21/2019 Kristie Mcrae 9:12:54 AM RT(R) [facility] [address] [place] [address]
[2019-08-21] MEDS ORDERED: GABAPENTIN100 MG PO (07:19)
[2019-08-21] MEDS ORDERED: BAYER CHEWABLE81 MG PO ×2 (07:20→11:40)
[2019-08-21] MEDS ORDERED: NAPROSYN500 MG PO (07:20)
[2019-08-21] MEDS ORDERED: HYDROCODON-ACE1 EA10 PO (07:21)
[2019-08-21 07:35] VITALS: BP 197/89; Ht 162.6 cm; Wt 61.8 kg
[2019-08-21 07:50] LABS: BASOPHILS 0.5 % (0-2); EOSINOPHILS 4.3 % (0-7); HEMATOCRIT 35.3 % (36.0-48.0); HEMOGLOBIN 11.4 g/dL (12-16); IMMATURE GRANULOCYTES 0.7 % (0-5); LYMPHOCYTES 18.7 % (15-50); MCH 30.4 pg (26.0-34.0); MCHC 32.3 g/dL (31.0-37.0); MCV 94.1 fL (80.0-100.0); MEAN PLATELET VOLUME 10.4 fL (7.4-10.4); MONOCYTES 11.5 % (2-11); NEUTROPHILS 64.3 % (40-80); PLATELET COUNT 161 10x3/uL (130-400); RBC 3.75 10x6/uL (4.00-5.40); RDW 13.3 % (11.5-14.5); WBC 4.4 10x3/uL (4.8-10.8)
[2019-08-21 08:07] LABS: ANION GAP 12.4 mmol/L (8-16); CALCIUM 9.3 mg/dL (8.5-10.1); CHOL - HDL RATIO 4.5 ratio (2.3-4.1); CREATININE - SERUM 0.9 mg/dL (0.6-1.3); LDL-HDL RATIO 2.8 ratio (1.5-3.5); POTASSIUM - SERUM 4.4 mmol/L (3.5-5.1)
--- NOTE | 2019-08-21 09:25 | NUR ---
PT REC'D TO ROOM 6 VIA STRETCHER FROM [employer]. MONITORS ESTAB. PT DROWSY, GRANDDAUGHTER AT BS. SEE TREASURY SPECIALIST.. ALARMS ON AND C/L IN REACH.
--- NOTE | 2019-08-21 09:30 | NUR ---
DR. SOLOMON NOTIFIED OF SBP 215, NEW ORDER REC'D.
--- NOTE | 2019-08-21 09:35 | NUR ---
ADMIN PO CLONIDINE PER MD ORDER. PT DENIES PAIN OR NEEDS.
--- NOTE | 2019-08-21 09:40 | NUR ---
L GROIN SITE SOFT, SMALL AMT BLOOD NOTED TO 2X2, NO SWELLING. PEDAL PULSES PALP. PT RESTING QUIETLY, DENIES PAIN OR NEEDS. ALARMS ON AND C/L IN REACH.
--- NOTE | 2019-08-21 10:10 | NUR ---
L GROIN SITE REMAINS SOFT, NO INCREASE IN OOZING ON 2X2, NO S/S BLEEDING OR HEMATOMA. PULSES PALP. ALARMS ON AND C/L IN REACH.
--- NOTE | 2019-08-21 10:30 | NUR ---
L GROIN SITE SOFT, NO S/S BLEEDING OR SWELLING. B/P 169/79. PT RESTING QUIETLY. FEET WARM, PULSES PALP.
--- NOTE | 2019-08-21 11:00 | NUR ---
L GROIN SITE SOFT, NO S/S BLEEDING OR HEMATOMA. PULSES PALP. PT RESTING QUIETLY WITH GRANDDAUGHTER AT BS. B/P 144/69, HR 60. ALARMS ON AND C/L IN REACH.
--- NOTE | 2019-08-21 11:30 | NUR ---
L GROIN SITE SOFT, C/D/I. NO S/S BLEEDING. FEET WARM WITH PALP PULSES. VSS. PT RESTING QUIELTY, DENIES NEEDS. ALARMS ON AND C/L IN REACH.
--- NOTE | 2019-08-21 12:00 | NUR ---
L GROIN SITE SOFT, C/D/I, NO S/S BLEEDING OR SWELLING NOTED. PULSES PALP. VSS.
--- NOTE | 2019-08-21 13:04 | NUR ---
L GROIN SITE SOFT, NO S/S BLEEDING OR SWELLING. PIV D/C'D INTACT, DSG APPLIED. GRANDDAUGHTER ASSISTING PT TO GET DRESSED.
--- NOTE | 2019-08-21 13:15 | NUR ---
ALL D/C INSTRUCTIONS REVIEWED INCLUDING RESTRICTIONS, MEDICATIONS AND PLAN TO RETURN AUGUST 29 FOR PROCEDURE WITH PT AND HER GRANDDAUGHTER.
--- NOTE | 2019-08-21 13:20 | NUR ---
PT D/C'D VIA WC TO PRIVATE VEHICLE WITH ALL PAPER WORK AND BELONGINGS.
--- NOTE | 2019-08-22 13:51 | OP ---
PATIENT NAME: KRISHNA CLIFTON MEDICAL RECORD: [id number] :50 LOCATION:D.CAT ADMISSION DATE: SURGEON: ROSSY SOLOMON MD DATE OF OPERATION: 08/21/2019 PROCEDURE: AFRO with lower extremity runoff via left femoral artery approach. CATHETERS: A 5-Dutch sheath, a MERT catheter. The procedure was well tolerated. The patient returned to acosta, sheath removed. ExoSeal device was placed. Aortofemoral runoff. The MERT catheter was placed at the level of the renal arteries. Nonselective renal arteriogram shows no significant stenosis of the right renal or left renal. Aorta itself shows atherosclerotic wall disease. No evidence of dissection, no evidence of aneurysm. LEFT ILIAC SYSTEM: This showed mild wall disease with calcification, nothing flow restrictive. LEFT FEMORAL SYSTEM: Accusing common deep and superficial. Superficial has a long 80% stenosis in its midportion with a 3-vessel runoff, although somewhat diffuse disease distally. RIGHT SYSTEM: Right iliac system including common, internal and external showed mild wall disease, but no significant stenosis. LEFT FEMORAL SYSTEM: Left superficial femoral shows a diffuse 80% stenosis with a 3-vessel runoff, but with diffuse distal disease. PLAN: Intervention to the right SFA, left SFA at a later date. DESCRIPTION OF PROCEDURE: The 5-Dutch sheath was exchanged for a long 6-Dutch sheath. We will transverse the stenosis with a Glidewire. Next, stent deployed was a 100 mm x 5.0 SMART balloon postdilated with a 6.0 x 100 mm balloon. IMPRESSION: Successful CUT OFF SAW TENDER METAL stenting right SFA with improved runoff distally. PLAN: Intervention of left at a later date. Sheath was closed with ExoSeal device. Plavix loaded in the lab. TRANSINT:[id number] Voice Confirmation ID: [id number] DOCUMENT ID: [id number] ROSSY SOLOMON MD at 1351 CC: [id number] DICTATION DATE: 08/21/19915 DIVERSIFIED CROPS I FARMWORKER: 08/21/19 1718 DEP CLI 08/21/19 [facility] [address] [place] [address]
== END 2019-08-21 13:20 | disposition home or self-care (01) ==
LOC: D.CATH 06:42
PROVIDERS: ATTEND Internal Medicine Interventional Cardiology
DX: I70.203 Unspecified atherosclerosis of native arteries of extremities, bilateral legs (principal); E11.9 Type 2 diabetes mellitus without complications; Z79.84 Long term (current) use of oral hypoglycemic drugs; E78.5 Hyperlipidemia, unspecified; I10 Essential (primary) hypertension; I05.9 Rheumatic mitral valve disease, unspecified; I25.10 Atherosclerotic heart disease of native coronary artery without angina pectoris

== ENCOUNTER 2019-08-30 06:57 | Outpatient (CLI) | payer MEDICARE ==
[~2019-08-30] VITALS: Ht 162.6 cm; Wt 59.1 kg
--- NOTE | ~2019-08-30 | OP ---
PATIENT NAME: KRISHNA CLIFTON MEDICAL RECORD: [id number] :50 LOCATION:D.CAT ADMISSION DATE: SURGEON: ROSSY SOLOMON MD DATE OF OPERATION: 08/30/2019 PROCEDURE: PTCA stenting of the left SFA. DESCRIPTION OF PROCEDURE: After right femoral artery was cannulated via modified Seldinger technique, we used an MERT catheter to transverse around the horn past the diffusely diseased 80% left SFA down to the distal portion of this vessel. Next, predeployment stent was a 5 x 100 mm balloon inflated up to 10 atmospheres, it shows multiple areas of dissection, but with resolution of the stenosis and good inflation. Next, stent deployed was 100 x 5 SMART stent up to self-expanding was deployed. Next, we postdilated with a 100 x 5 balloon up to 12 atmospheres. Final angiography shows excellent resolution of severe diffuse 80% stenosis with multiple areas of dissection with nice tacking of dissection and no significant residual, 2-vessel runoff remains. Sheath closed with ExoSeal device. The patient was placed on Plavix, heparin used during the case. TRANSINT:[id number] Voice Confirmation ID: [id number] DOCUMENT ID: [id number] ROSSY SOLOMON MD CC: [id number] DICTATION DATE: 08/30/19928 HOME HEALTH CARE SOCIAL WORKER: 08/30/19 1859 DEP CLI 08/30/19 [facility] [id number] [place] [address]
--- NOTE | ~2019-08-30 | HP ---
PATIENT: KRISHNA CLIFTON MEDICAL RECORD: [id number] ACCOUNT: [id number] LOCATION:[facility] : 50 ADMISSION DATE: 08/30/19 PCP: CARLYN DIAZ MD HISTORY AND PHYSICAL EXAMINATION HISTORY OF PRESENT ILLNESS: A 68-year-old female with a history of peripheral vascular disease status post intervention of the right. As visualized on left, she has had claudication, known diabetes. Plan for intervention to the left SFA. PAST MEDICAL HISTORY: Includes; 1. History of hypertension. 2. Hyperlipidemia. 3. Diabetes mellitus. PHYSICAL EXAMINATION: GENERAL: Elderly female in no acute distress, appears stated age. HEENT: Normocephalic, atraumatic. NECK: No bruits noted. HEART: Regular. LUNGS: Fair air excursion. ABDOMEN: Soft, nontender. EXTREMITIES: Pulses are decreased, improved on the right. PLAN: For intervention, left SFA. Further recommendation based on the above. TRANSINT:[id number] Voice Confirmation ID: [id number] DOCUMENT ID: [id number] ROSSY SOLOMON MD CC: [id number] DICTATION DATE: 08/30/19831 SLEEVE PRESSER OPERATOR: 08/30/19 0851 [facility] [address] [place] [id number]
--- NOTE | ~2019-08-30 | HEMODYNAMI ---
PATIENT:KRISHNA CLIFTON MEDICAL RECORD: [id number] : 50 LOCATION:D.CAT ADMISSION DATE: 08/30/19 Generatedon:08/30/20199:43 Patient name: KRISHNA CLIFTON Patient #: [id number] SSN: [id number] : 1950 Date of study: 08/30/2019 Page: Of Hemodynamic Procedure Report Patient Data Patient Demographics Procedure consent was obtained First Name: KRISHNA Gender: Female Last Name: ETIENNE : 1950 Middle Initial: BECKIE Age: 68 year(s) Patient #: [id number] Race: SSN: [id number] Additional ID: [id number] Contact details Address: [address] [place] [address] State: [place] City: [place] Zip code: [address] Past Medical History Allergies Allergen Reaction Date Comments Reported Other allergy 08/21/2019 PCN Other allergy 08/30/2019 PENICILLIN Admission Admission Data Admission Date: 08/30/2019 Admission Time: 6:57 Arrival Date: 08/30/2019 Arrival Time: 0:00 Admit Source: Other Insurance Payor: Medicare [facility] #: [id number] Height (in.): 63.78 BSA: 1.63 (m2) Height (cm.): 162 BMI: 22.48 (kg/m2) Weight (lbs.): 130.07 Weight (kg.): 59 Lab Results Lab Result Date: 08/30/2019 Lab Result Time: 0:00 Biochemistry Name Units Result Min Max BUN mg/dl 27 --(----)-* 7 18 Creatinine mg/dl 1.2 --(---*)-- 0.6 1.3 eGFR ml/min 47 *-(----)-- 90 120 NONAFRICAN CBC Name Units Result Min Max Hematocrit % 33.8 *-(----)-- 42 54 Hemoglobin g/dl 10.8 *-(----)-- 13.5 17.5 Procedure Procedure Types Cath Procedure PCI Procedure Hemochron ACT Test Peripheral vascular Intervention Stent Stent-Fem/Popw/plasty Procedure Description Procedure Date Procedure Date: 08/30/2019 Procedure Start Time: 8:54 Procedure End Time: 9:42 Procedure Staff Name Function Rmairo Alcaraz MD Performing Physician Gisella Simms RT Monitor Bria Montano RN Nurse Candace Parra RT Scrub Procedure Data Cath Procedure Fluoroscopy Diagnostic fluoroscopy Total fluoroscopy Time: time: 10.9 min 10.9 min Diagnostic fluoroscopy Total fluoroscopy dose: 142 dose: 142 mGy mGy Contrast Material Contrast Material Type Amount (ml) Isovue 300 30 Entry Location Entry Primary Successful Side Size Upsize 1 Upsize Entry Closure William ccessful Closure Location (Fr) (Fr) 2 (Fr) Remarks Device Remarks Femoral Right 6 Fr 6 Fr Exoseal artery Short Mid-Length Estimated blood loss: 10 ml Diagnostic catheters Device Type Used For End Catheter Placement DIAGNOSTIC UF 5Fr Procedure catheter ([id number]) Procedure Complications No complications Procedure Medications Medication Administration Route Dosage 0.9% NaCl I.V. 100 ml/hr Oxygen etCO2 Nasal cannula 2 l/min Lidocaine 2% added to field 20 Heparin Flush Bag added to field 2 bags (1000units/500ml NS) Plavix P.O. 75 mg Versed I.V. 2 mg Fentanyl I.V. 50 mcg Lopressor I.V. 5 mg Heparin Bolus I.V. 5000 units Lopressor I.V. 5 mg Vasotec 2.5 mg Fentanyl I.V. 50 mcg Hemodynamics Rest BSA: 1.63 (m2) HGB: 10.8 (g/dl) O2 Consumption: Estimated: 150.88 (ml/min) O2 Co nsumption indexed: Estimated:92.56 (ml/min/m) Heart Rate: 70 (bpm) Snapshots Pre Cath Intra NCS Post Cath Vital Signs Time Heart Resp SPO2 etCO2 NIBP (mmHg) Rhythm Pain Sedation Rate (ipm) (%) (mmHg) Status Level (bpm) 8:45:31 70 16 97 35.3 213/93(147) NSR 0 (11) 10(A) , No pain 8:50:31 67 15 98 40.6 Measuring NSR 0 (11) 10(A) , No pain 8:51:13 69 16 98 36.1 205/85(151) NSR 0 (11) 10(A) , No pain 8:55:46 72 17 98 38.3 201/96(156) NSR 0 (11) 9(A) , No pain 9:00:18 70 16 98 36.8 209/95(169) NSR 0 (11) 9(A) , No pain 9:04:55 68 17 98 39.1 213/100(157) NSR 0 (11) 9(A) , No pain 9:09:31 67 14 96 36.8 205/86(153) NSR 0 (11) 9(A) , No pain 9:14:08 68 15 98 39.1 211/87(141) NSR 0 (11) 9(A) , No pain 9:18:42 67 16 98 40.6 205/92(152) NSR 0 (11) 9(A) , No pain 9:23:15 70 17 98 39.8 203/86(152) NSR 0 (11) 10(A) , No pain 9:27:53 68 4 98 43.6 218/87(145) NSR 0 (11) 10(A) , No pain 9:32:28 66 7 98 42.1 210/90(156) NSR 0 (11) 10(A) , No pain 9:36:58 66 2 98 41.4 No Cuff NSR 0 (11) 10(A) , No pain 9:40:33 0 No Cuff NSR 0 (11) 10(A) , No pain Medications Time Medication Route Dose Verified Delivered Reason Notes Effectiveness by by 8:35:51 0.9% NaCl I.V. 100 Ramiro Fraser [facility] 8:35:56 Oxygen etCO2 2 Ramiro Bria used for Nasal l/min [facility] procedure cannula RN 8:36:02 Lidocaine 2% added 20ml Ramiro Rubio for local to vial [facility] anesthetic field MD ORELLANA 8:36:06 Heparin Flush added 2 Ramior Jackory used for Bag to bags [facility] procedure (1000units/500ml field MD ORELLANA NS) 8:39:27 Plavix P.O. 75 mg Ramiro Rubio for [facility] antiplatelet MD ORELLANA therapy 8:52:37 Versed I.V. 2 mg Ramiro Cristobala for sedation [facility] [place] Montano MD, RN 8:52:50 Fentanyl I.V. 50 Ramiro Fraser for sedation mcg [facility] [place] Montano MD, RN 8:58:59 Lopressor I.V. 5 mg Ramiro Cristobala for [facility] [place] hopson MD, RN 8:59:59 Fentanyl I.V. 50 Ramiro Cristobala for sedation mcg [facility] [place] Montano MD, RN 9:02:25 Heparin Bolus I.V. 5000 Ramiro Fraser for verifi ed units [facility] [place] Montano anticoagulation with Dr. MD MAYO Contreras 9:06:54 Lopressor I.V. 5 mg Ramiro Cristobala for [facility] [place] hopson MD, RN 9:13:06 Vasotec I.V 2.5 Ramiro [address] for mg [facility] [place] hopson MD, RN Procedure Log Time Note 8:07:01 Admit Source: Other 8:07:04 Arrival Date: 08/30/2019 12:00:00 AM 8:07:20 Insurance Payor : Medicare 8:09:19 Patient Height : 63.78 inches 8:09:22 Patient Weight : 130.07 lbs 8:09:33 Diagnostic Cath Status : Elective 8:15:01 Procedure Status Elective Heart Cath (OP). 8:15:13 Plan of Care:Hemodynamics will remain stable., Cardiac rhythm will remain stable., Comfort level will be maintained., Respiratory function will remain adequate., Patient/ family verbilizes understanding of procedure., Procedure tolerated without complication., Recovers from procedure without complications.. 8:22:30 Gisella GOLDMAN(R) (CV) sent for patient. Start room use. 8:22:35 Time tracking: Regular hours (M-F 7:00 - 5:00) 8:35:42 Vital chart was started 8:35:51 0.9% NaCl 100 ml/hr I.V. was administered by Bria Montano RN; used for procedure; Verbal order read back and verified. 8:35:56 Oxygen 2 l/min etCO2 Nasal cannula was administered by Bria Montano RN; used for procedure; Verbal order read back and verified. 8:36:02 Lidocaine 2% 20ml vial added to field was administered by Ramiro Alcaraz MD; for local anesthetic; Verbal order read back and verified. 8:36:06 Heparin Flush Bag (1000units/500ml NS) 2 bags added to field was administered by Ramiro Alcaraz MD; used for procedure; Verbal order read back and verified. 8:38:44 Patient received from Pre/Post Procedure Room to CCL 1 Alert and oriented. Tansferred to table in Supine position. 8:38:48 Signed procedure consent form obtained from patient. 8:38:50 Warm blankets applied, and tabitha hugger turned on for patient comfort. 8:38:51 Correct patient and procedure confirmed by team. 8:38:52 ECG and BP/O2 sat monitors applied to patient. 8:39:27 Plavix 75 mg P.O. was administered by Ramiro Alcaraz MD; for antiplatelet therapy; Verbal order read back and verified. 8:40:11 Baseline sample Acquired. 8:40:24 Rhythm: sinus rhythm 8:40:26 Full Disclosure recording started 8:40:27 8:40:37 H&P Date Dictated: 08/30/2019 H&P Addendum completed by physician on day of procedure. (MUST COMPLETE FOR ALL OUTPATIENTS), New H&P dictated by physician.. 8:40:39 Pre-procedure instructions explained to patient. 8:40:40 Pre-op teaching completed and patient verbalized understanding. 8:40:44 Family in patients room. 8:40:48 Patient NPO since Midnight. 8:41:10 Patient allergic to Other allergyPENICILLIN 8:41:17 Is the patient allergic to Iodine/contrast media? No. 8:41:21 Was the patient premedicated? Yes 8:41:24 Is patient on blood thinner?Yes 8:41:29 ACC The patient was administered the following blood thiners within the last 24 hours: ACCPlavix 8:41:32 Patient diabetic? Yes. 8:41:34 If diabetic: On Metformin? Yes 8:41:44 If on Metformin: Last Dose? 08/29/2019 8:41:49 ----Pre-sedation anethsthesia assessment.---- 8:41:52 Previous problem with sedation/anesthesia? No ? 8:41:55 Snore? Yes 8:41:58 Sleep apnea? No 8:42:01 Deviated septum? Unknown 8:42:03 Opens mouth fully? Yes 8:42:05 Sticks out tongue? Yes 8:42:30 Airway obstruction? No ? 8:42:39 Dentures? Yes UPPER IN TIGHT 8:42:50 Pre procedure: right dorsailis pedis pulse Doppler 8:43:05 IV patent on arrival in left antecubital with 0.9% NaCl at [facility]. 8:47:30 Lab Result : BUN 27 mg/dl 8:47:30 Lab Result : Creatinine 1.2 mg/dl 8:47:30 Lab Result : eGFR NONAFRICAN 47 ml/min 8:47:30 Lab Result : Hemoglobin 10.8 g/dl 8:47:30 Lab Result : Hematocrit 33.8 % 8:47:38 Lab results completed and on chart. 8:47:51 Right groin area was prepped with chlora-prep and draped in sterile fashion 8:48:01 Alarms reviewed by R. N. 8:48:02 Sharps counted by scrub and verified by R.N. 8:48:25 Use device set Femoral Dx 8:48:27 ACIST Syringe (63047) opened to sterile field. 8:48:27 Bag Decanter (2002) opened to sterile field. 8:48:28 Medline Cath Pack ([id number]) opened to sterile field. 8:48:30 ACIST Hand Control (29724) opened to sterile field. 8:48:31 ACIST Manifold (28519) opened to sterile field. 8:48:33 Tegaderm 4 x 4 (1626W) opened to sterile field. 8:48:36 EMERALD Guide Wire (030-957) opened to sterile field. 8:48:50 SHEATH 6FR [place] (PTT478) opened to sterile field. 8:48:59 INFLATOR Merit BasixCompak (QF8599) opened to sterile field. 8:49:24 TORQUE DEVICE PLASTIC .038 ( TD01) opened to sterile field. 8:49:51 GLIDE WIRE ANGLE 260cm (QF3558) opened to sterile field. 8:50:25 Physician arrived 8:50:27 --------ALL STOP TIME OUT------ 8:50:29 Final Timeout: patient, procedure, and site verified with staff and physician. All members of the team are in agreement. 8:50:32 Right groin site verified by team. 8:50:38 Fire Safety Assessment: A--An alcohol-based skin anteseptic being used preoperatively., C--Open oxygen or nitrous oxide is being used., D--An ESU, laser, or fiber-optic light is being used. 8:50:44 Physical assessment completed. ASA score P 2 - A patient with mild systemic disease as per Ramiro Alcaraz MD. 8:50:51 3a) 45-59 Moderately reduced kidney function. 8:51:01 Maximum allowable contrast dose (3.7 X eGFR X 0.75)130 ml. 8:51:07 Sedation plan: IV Moderate Sedation Medication:Versed, Fentanyl 8:52:37 Versed 2 mg I.V. was administered by Bria Montano RN; for sedation; Verbal order read back and verified. 8:52:50 Fentanyl 50 mcg I.V. was administered by Bria Montano RN; for sedation; Verbal order read back and verified. 8:53:34 Zero performed for pressure channel P1 8:54:21 Procedure started. 8:54:50 Local anesthetic to right femoral artery with Lidocaine 2% by Ramiro Alcaraz MD.INITIAL ACCESS ONLY 8:55:08 A 6 Fr Short sheath was inserted into the Right Femoral artery 8:55:18 A DIAGNOSTIC UF 5Fr catheter ([id number]) was advanced over the wire and used for Procedure. 8:55:55 A 5 FrFr UF catheter was inserted over the GLIDEWIRE. 8:58:59 Lopressor 5 mg I.V. was administered by Bria Montano RN; for hypertension; Verbal order read back and verified. 8:59:15 Abdominal Aortagram was performed 3 FOR 6. 8:59:59 Fentanyl 50 mcg I.V. was administered by Bria Montano RN; for sedation; Verbal order read back and verified. 9:02:25 Heparin Bolus 5000 units I.V. was administered by Bria Montano RN; for anticoagulation; verified with Dr. Contreras Verbal order read back and verified. 9:03:41 THE UF IS REMOVED AND THE WIRE IS ADVANCED INTO THE LEFT SFA AND DOWN TO THE LEFT POPILTEAL. 9:03:57 Sheath upsized to a 6 Fr Mid-Length. 9:05:01 Left leg runoff performed@3 FOR 6. 9:06:54 Lopressor 5 mg I.V. was administered by Bria Montano RN; for hypertension; Verbal order read back and verified. 9:10:03 Inflate balloon Inflation number: 1 A POWERFLEX PRO 5.0 X 100 X 135 balloon ([id number]) was prepped and advanced across the Mid Superficial Femoral, Left , then inflated to 10 ANDRES for 0:00 (min:sec) . 9:11:28 Inflation number: 2 The POWERFLEX PRO 5.0 X 100 X 135 balloon ([id number]) was reinflated across the Mid Superficial Femoral, Left , to 10 ANDRES for 0:49 (min:sec) . 9:13:00 Balloon removed over the wire. 9:13:06 Vasotec 2.5 mg I.V was administered by Bria Montano RN; for hypertension; Verbal order read back and verified. 9:13:15 Left leg runoff performed. 9:20:09 SMART Flex 5 X 100 X 120 stent ([id number]) was deployed across Mid Superficial Femoral, Left . 9:20:49 Stent delivery system removed. 9:22:08 Inflation number: 3 The POWERFLEX PRO 5.0 X 100 X 135 balloon ([id number]) was reinflated across the Mid Superficial Femoral, Left , to 12 ANDRES for 0:30 (min:sec) . 9:23:13 Balloon removed over the wire. 9:23:35 Left leg runoff performed. 9:24:44 EXOSEAL 6Fr (EX600) opened to sterile field. 9:25:28 THE LONG SHEATH IS EXCHANGED FOR THE SHORT 6 SHEATH. 9:26:14 Sheath removed intact; hemostasis achieved with Exoseal to the Right Femoral artery. 9:26:21 Procedure ended.(Physican Out) 9::41 Fluoroscopy time 10.90 minutes. 9:26:47 Flurop Dose total: 142 9:26:47 Fluoroscopy dose: 142 mGy 9:27:08 Dose Area Product 55760 mGy/cm. 9:27:22 Contrast amount:Isovue 300 30ml. 9:27:26 Maximum allowable dose exceeded? No. 9::28 Sharps counted by scrub and verified by R.N. 9:28:36 Post-op/insertion site Right Femoral artery dressed using a 4 x 4 and Tegaderm. 9:28:48 Post-procedure physical assessment completed. ASA score P 2 - A patient with mild systemic disease as per Ramiro Alcaraz MD. 9:28:54 Post procedure rhythm: unchanged. 9::58 Estimated blood loss: 10 ml 9:28:59 Post procedure instruction explained to patient.Patient verbalizes understanding. 9:29:00 Patient needs reinforcement of post procedure teaching. 9:29:40 ACT drawn and resulted at 365 seconds. (normal therapeutic range 180-240 seconds). 9:33:24 Procedure type changed to Cath procedure, PCI procedure, Hemochron ACT Test, Peripheral vascular Intervention, Stent, Stent-Fem/Popw/plasty 9:42:00 Procedure and supply charges have been captured, reviewed, submitted and are correct. 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 9:42:28 See physician's report for complete and final results. 9:42:31 Report given to Pre/Post Procedure Room. 9:42:35 Patient transfered to Pre/Post Procedure Room with Stretcher. 9:42:38 Procedure ended. 9:42:38 Full Disclosure recording stopped 9:42:46 ACC-PCI Only Patient was given prescriptions, or instructed by Ramiro Alcaraz MD to start/continue the following medications upon discharge: Plavix 9:42:48 End room use (Document Last) Intervention Summary Intervention Notes Time ActionType Lesion and Equipment Action# Pressure Duration Attributes Used 9:10:03 Inflate Mid POWERFLEX 1 10 00:00 balloon Superficial PRO 5.0 X Femoral, 100 X 135 Left balloon ([id number]) 9:11:28 Reinflate Mid POWERFLEX 2 10 00:49 balloon Superficial PRO 5.0 X Femoral, 100 X 135 Left balloon ([id number]) 9:20:09 Deploy self Mid SMART Flex 1 expanding Superficial 5 X 100 X stent Femoral, 120 stent Left ([id number]) 9:22:08 Reinflate Mid POWERFLEX 3 12 00:30 balloon Superficial PRO 5.0 X Femoral, 100 X 135 Left balloon ([id number]) Device Usage Item Name Manufacture Quantity Catalog Hospital Part Current Minimal L ot# / Number Charge Number Stock Stock Serial# Code ACIST Acist 1 06506 488505 831414 267142 20 Syringe Medical (76291) Systems Inc Bag Microtek 1 209786 10781 367906 5 Decanter Medical Inc. () Medline Medline 1 [id number] 955317 57195 771106 5 Cath Pack ([id number]) ACIST Hand Acist 1 81841 166588 929426 765588 5 Control Medical (96692) Systems Inc ACIST Acist 1 72130 115333 827718 024541 5 Manifold Medical (76272) Systems Inc Tegaderm 4 3M 1 1626W 885894 683670 313012 5 x 4 (1626W) EMERALD Cardinal 1 502-455 856020 645291 887087 5 Guide Wire Health (502-455) SHEATH 6FR Terumo 1 AEQ608 272415 739808 452788 40 [place] (NAA584) INFLATOR Merit 1 AJ6975 854783 524206 574043 15 Ubalo Medical BasixCompak (VF0134) TORQUE Omega 1 TD01 291848 573787 272787 5 DEVICE Scientific PLASTIC .038 ( TD01) GLIDE WIRE Terumo 1 GA4372 589176 771905 336276 5 ANGLE 260cm (YQ9378) DIAGNOSTIC Cardinal 1 [id number] 599708 252930 945918 10 UF 5Fr Health catheter (331119L5) POWERFLEX Cardinal 1 [id number] 345583 030771 515285 5 PRO 5.0 X Health 100 X 135 balloon ([id number]) SMART Flex Cardinal 1 [id number] 547137 863713 721873 0 2 27379 5 X 100 X Health 120 stent ([id number]) EXOSEAL 6Fr Cardinal 1 EX600 875245 393242 537925 10 (EX600) Health Signature Audit [place] Stage Time Signature Unsigned Intra-Procedure 08/30/2019 Gisella 9:43:07 AM Demi RT(R) (CV) Intra-Procedure 08/30/2019 Bria Montano 9:43:33 AM RN Intra-Procedure 08/30/2019 Ramiro Mendoza 9:43:55 AM [place] ORELLANA [address] [place] [address]
[~2019-08-30 06:57] MED LIST changes: +GABAPENTIN100 MG PO; +HYDROCODON-ACE1 EA10 PO
[2019-08-30 07:40] VITALS: BP 138/93; Ht 162.6 cm; Wt 59.1 kg
[2019-08-30 08:14] LABS: BASOPHILS 0.4 % (0-2); EOSINOPHILS 3.5 % (0-7); HEMATOCRIT 33.8 % (36.0-48.0); HEMOGLOBIN 10.8 g/dL (12-16); IMMATURE GRANULOCYTES 0.4 % (0-5); LYMPHOCYTES 16.7 % (15-50); MCH 30.1 pg (26.0-34.0); MCV 94.2 fL (80.0-100.0); MEAN PLATELET VOLUME 10.2 fL (7.4-10.4); MONOCYTES 8.5 % (2-11); NEUTROPHILS 70.5 % (40-80); PLATELET COUNT 154 10x3/uL (130-400); RBC 3.59 10x6/uL (4.00-5.40); RDW 13.2 % (11.5-14.5); WBC 5.4 10x3/uL (4.8-10.8)
[2019-08-30 08:26] LABS: ANION GAP 10.4 mmol/L (8-16); CALCIUM 9.5 mg/dL (8.5-10.1); CARBON DIOXIDE 25.4 mmol/L (21.0-32.0); CREATININE - SERUM 1.2 mg/dL (0.6-1.3); POTASSIUM - SERUM 3.8 mmol/L (3.5-5.1)
--- NOTE | 2019-08-30 09:45 | NUR ---
PT RECEIVED VIA STRETCHER FROM BARBER INSTRUCTOR FOR RECOVERY. PT DROWSY BUT VERBALLY AROUSABLE. PT DENIES PAIN OR DISCOMFORT AT THIS TIME. IV PATENT INFUSING VIA ORDERS TO L ARM. R GROIN W 6FR EXOCELE, DRESSING CDI NO S/S HEMATOMA OR BLEEDING. L LEG PINK AND WARM, PEDAL PULSES AUDIBLE W DOPPLER X2. PT PLACED ON CARDIAC MONITORS AND O2 VIA NC AT 2L. HR NSR RATE 65, BP 194/86, RR 9, SAT 98. PT INSTRUCTED TO KEEP HEAD ON PILLOW AND LEG STRAIGHT, SHE VERBALIZED UNDERSTANDING. CALL LIGHT IN REACH, DAUGHTER AT BS.
--- NOTE | 2019-08-30 10:18 | NUR ---
PT RESTING COMFORTABLY, DENIES PAIN OR NEEDS. R GROIN SOFT, DRESSING CDI NO S/S HEMATOMA OR BLEEDING. PEDAL PULSES AUDIBLE. HR 66, BP 185/71, SAT 96. CALL LIGHT IN REACH
--- NOTE | 2019-08-30 11:01 | NUR ---
R GROIN SOFT, DRESSING CDI NO S/S HEMATOMA. VSS. CALL LIGHT IN REACH, DAUGHTER AT BS.
--- NOTE | 2019-08-30 11:30 | NUR ---
PT REQUESTING BEDPAN AGAIN, STATES SHE HAS TO GO FREQUENTLY. PUREWICK DEVICE PLACED PER PT CONSENT AND CONNECTED TO SUCTION. R GROIN SOFT, DRESSING CDI NO S/S HEMATOMA NOTED. PT DENIES PAIN OR OTHER NEEDS AT THIS TIME. DAUGHTER REMAINS AT BS.
--- NOTE | 2019-08-30 12:04 | NUR ---
PT RESTING COMFORTABLY, R GROIN SOFT, DRESSING REMAINS CDI NO S/S HEMATOMA NOTED. VSS. CALL LIGHT IN REACH
--- NOTE | 2019-08-30 12:06 | NUR ---
NO CHANGE IN CONDITION, R GROIN SOFT DRESSING CDI NO S/S HEMATOMA.
--- NOTE | 2019-08-30 12:30 | NUR ---
R GROIN SOFT, DRESSING CDI NO S/S HEMATOMA. PT'S B/P STAYING UP, SHE HAS HX OF HIGH BP BUT ON NO MAINTANCE MEDS. WILL NOTIFY DR SOLOMON. PURE WICK IN PLACE, 400 CC URINE OUT IN SUCTION CANISTER. HOB ELEVATED FOR COMFORT. CALL LIGHT IN REACH.
--- NOTE | 2019-08-30 12:50 | NUR ---
HOB ELEVATED MORE, SANDWICH AND DRINK SERVED. R GROIN SOFT, DRESSING CDI NO S/S HEMATOMA OR BLEEDING NOTED. ORDERS REC'D FOR BP TREATMENT PER DR. SOLOMON.
--- NOTE | 2019-08-30 13:12 | NUR ---
CLONIDINE 0.2 GIVEN PER ORDERS. BP 195/79, HR 66, SAT 98 ON ROOM AIR. O2 REMOVED. PT TOLERATED LUNCH W/O NAUSEA
--- NOTE | 2019-08-30 13:30 | NUR ---
DISCHARGE INSTRUCTIONS REVIEWED W PT AND DAUGHTER, BOTH VERBALIZED UNDERSTANDING. IV REMOVED W CATH INTACT, MONITORS REMOVED. R GROIN REMAINS SOFT, NO S/S HEMATOMA. PT UP TO DRESS FOR DISCHARGE 1340 PT TO BR VIA WC, VOIDING W/O DIFFICULITY
--- NOTE | 2019-08-30 13:50 | NUR ---
PT DISCHARGED VIA WC TO PRIVATE VEHICLE. PT HAD ALL BELONGINGS AND DISCHARGE PAPERWORK.
== END 2019-08-30 13:45 | disposition home or self-care (01) ==
LOC: D.CATH 06:57
PROVIDERS: ATTEND Internal Medicine Interventional Cardiology
DX: I70.202 Unspecified atherosclerosis of native arteries of extremities, left leg (principal); I10 Essential (primary) hypertension; E78.5 Hyperlipidemia, unspecified; E11.9 Type 2 diabetes mellitus without complications; Z79.84 Long term (current) use of oral hypoglycemic drugs; Z86.73 Personal history of transient ischemic attack (TIA), and cerebral infarction without residual deficits; I25.119 Atherosclerotic heart disease of native coronary artery with unspecified angina pectoris